=== PATIENT | female | born 2000 | race Caucasian/White ===

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

== ENCOUNTER 2019-01-15 19:02 | Emergency (ER) | payer OTHER, SELFPAY ==
[2019-01-15 19:09] VITALS: BP 132/89; PULSE 74; RESP 16; TEMP 36.4; O2SAT 100; BMI 28.5
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
== END 2019-01-15 20:40 | disposition home or self-care (01) ==
PROVIDERS: Emergency Provider Internal Medicine; Family Provider Family Medicine; PCP Family Medicine
DX: S00.33XA Contusion of nose, initial encounter (principal); Y99.0 Civilian activity done for income or pay
CPT/HCPCS: 99282